=== PATIENT | female | born 1980 | race Asian ===

== ENCOUNTER 2019-12-10 21:44 | Emergency (ER) | payer OTHER ==
[~2019-12-10] VITALS: Ht 157.4 cm; Wt 63.5 kg
[2019-12-10 22:09] LABS: BILIRUBIN Negative (Negative); BLOOD 2+ (Negative); COLOR Yellow (Yellow); GLUCOSE Negative (Negative); KETONE Negative (Negative); LEUKO ESTERASE 1+ (Negative); NITRITE Negative (Negative); PH 5.5 (4.5-8.0); SPECIFIC GRAVITY <= 1.005 (1.001-1.030); UROBILINOGEN 0.2 E.U./dl (0.0-1.0)
[2019-12-10 22:16] LABS: CLARITY Clear (Clear)
[2019-12-10 22:57] LABS: BASO # 0.1 10*3/uL (0.0-0.1); BASO % 0.4 % (0.0-1.0); EOS # 0.1 10*3/uL (0.0-0.4); EOS % 0.7 % (1.0-4.0); HEMATOCRIT 39.8 % (37.0-47.0); LYMPH # 3.4 10*3/uL (1.3-4.4); LYMPH % 26.1 % (27.0-41.0); MEAN CORPUSCULAR HGB 29.8 pg (27.0-31.0); MEAN CORPUSCULAR HGB CONC 33.4 g/dl (33.0-37.0); MEAN PLATELET VOLUME 8.5 fl (9.6-12.3); MONO # 0.7 10*3/uL (0.1-1.0); MONO % 5.6 % (3.0-9.0); NEUT # 8.6 10*3/uL (2.3-7.9); NEUT % 66.8 % (47.0-73.0); PLATELET COUNT AUTOMATED 308 10*3/uL (130-400); RED BLOOD COUNT 4.47 10*6/uL (4.10-5.10); RED CELL DISTRI WIDTH 11.2 % (0-14.5); WHITE BLOOD COUNT 12.9 10*3/uL (4.8-10.8)
[2019-12-10 23:12] LABS: ALBUMIN 3.8 gm/dl (3.1-4.5); ALKALINE PHOSPHATASE 74 U/L (45-117); BUN 10 mg/dl (7-24); CHLORIDE 109 mmol/L (98-107); CREATININE 0.76 mg/dL (0.55-1.02); LIPASE 132 U/L (73-393); POTASSIUM 4.1 mmol/L (3.5-5.1); SGOT/AST 16 IU/L (3-35); SGPT/ALT 22 U/L (12-78); SODIUM 138 mmol/L (136-145); TOTAL PROTEIN 7.4 gm/dL (6.4-8.2)
[2019-12-10] MEDS ORDERED: MACROBID100 M1 PO (23:48)
[2019-12-10] MEDS ORDERED: PYRIDIUM200 M1 PO (23:48)
== END 2019-12-11 01:37 | disposition home or self-care (01) ==
LOC: ED 21:44
PROVIDERS: Emergency Medicine Emergency Medical Services
DX: N30.90 Cystitis, unspecified without hematuria (principal)